=== PATIENT | female | born 1995 | race Caucasian/White ===

== ENCOUNTER 2016-07-26 18:04 | Emergency (ER) | payer BC, OTHER ==
[~2016-07-26] VITALS: Ht 162.6 cm; Wt 60.0 kg
[2016-07-26 18:09] VITALS: Ht 162.6 cm; Wt 60.0 kg
[2016-07-26] MEDS ORDERED: ONDANSETRON 8 MG/54 ML D5W IV STA (20:13)
[2016-07-26] MEDS ORDERED: MoRPHine SULFATE 4 MG/ML 1 ML CARP\\VIAL IV STA (20:14)
[2016-07-26] MEDS ORDERED: SODIUM CHLORIDE 0.9% 1000ML 2,000 ML IV STA (20:14)
[2016-07-26 20:28] LABS: HEMATOCRIT 39.2 % (37-47); MEAN CORPUSCULAR HEMOGLOBIN 28.2 pg (25-34); MEAN CORPUSCULAR HGB CONC 34.4 g/dl (32-36); MEAN PLATELET VOLUME 9.6 fL (7.4-10.4); PLATELET COUNT 210 K/uL (130-400); RED BLOOD COUNT 4.78 M/uL (4.2-5.4); WHITE BLOOD COUNT 9.52 K/uL (4.8-10.8)
[2016-07-26] MEDS ORDERED: EFF75 PO (20:33)
[2016-07-26] MEDS ORDERED: LORA-741 PO (20:34)
[2016-07-26] MEDS ORDERED: IUD'IUD PV (20:35)
[2016-07-26 20:36] LABS: PREG INTERNAL NEGATIVE QC NEG CLEAR BACKGROUND; PREG INTERNAL POSITIVE QC POS CONTROL LINE
[2016-07-26 20:38] LABS: BUN/CREATININE RATIO 22.6 (10-20); CALCIUM 9.1 mg/dl (8.5-10.1); CREATININE 1.1 mg/dl (0.60-1.20); POTASSIUM 3.2 mmol/L (3.5-5.1)
[2016-07-26 21:16] LABS: BASO % 0.1 %; BASO ABS # 0.01 K/uL (0-0.2); COMPLETE YES; IG% 0.3 %; LYMPH % 4.3 %; LYMPH ABS # 0.41 K/uL (1.2-3.4); MONO % 5.3 %
[2016-07-26] MEDS ORDERED: ACETAMINOPHEN 500 MG TAB PO STA (22:33)
[2016-07-26] MEDS ORDERED: KETOROLAC TROMETHAMINE 30 MG/ML VIAL IV STA (22:33)
[2016-07-26 23:37] VITALS: TEMP 37.8
[2016-07-26] MEDS ORDERED: SODIUM CHLORIDE 0.9% 1000ML 1,000 ML IV STA (23:58)
[2016-07-27] MEDS ORDERED: PHENERGAN 25MG HOMEPACK PO ONE (00:45)
[2016-07-27 01:00] VITALS: BP 104/57; PULSE 101; O2SAT 100
--- NOTE | 2016-07-27 03:12 | EMERGENCY ROOM VISIT NOTE ---
History Report prepared by Vinicioibbeka: Yadira Perez Under the Supervision of: Dr. Jim Delgadillo M.D. First contact with patient: 19:48 Chief Complaint: ABDOMINAL PAIN Stated Complaint: STOMACH PAIN,PINS AND NEEDLES,THROWING UP,DIARRHEA Nursing Triage Summary: Woke up at 3am not feeling well. Vomiting since 7 am. Pins and needles in hands. History of Present Illness The patient is a 21 year old female who presents to the Emergency Room with complaints of constant vomiting and abdominal pain beginning 13 hours ago. The patient states that she woke up this morning and felt a burning in her chest and stomach and thought that it may be indigestion until she threw up 2 hours later in the shower. She notes that she has been throwing up every hour for the last 10 hours and has had 3 episodes of diarrhea, tingling hands, soreness from vomiting, back pain, and infrequent urination. The patient reports that she has only had water and saltines today. The patient rates her pain while laying down as a 6/10 and when she is about to vomit an 8/10. She reports that vomiting makes her feel better for a little while but within the hour she feels the burning again. She notes that her father has Katie's and she has been getting blood work to check her thyroid that has been normal. She reports that none of her friends have been sick around her to this severity. Pt denies LOC, headache, fevers, chills, diaphoresis, visual changes, neck pain, chest pain, breathing difficulties, melena, hematochezia, numbness, weakness, lymphadenopathy, rash, or other complaints. Source of History: patient Onset: 13 hours ago Position: abdomen Quality: burning Timing: constant Modifying Factors (Worsening): other (vomiting) Review of Systems See HPI for pertinent positives and negatives. A total of ten systems were reviewed and were otherwise negative. Past Medical & Surgical Medical Problems: (1) No known problems (2) No known problems Family History No pertinent family history stated. Social History Smoking Status: Never Smoker Marital Status: single Housing Status: lives with roommate Occupation Status: [employer] student Current/Historical Medications Scheduled Iud's ([employer]), 1 PV CONTINOUS Venlafaxine Hcl (Effexor), 75 MG PO DAILY Scheduled PRN Lorazepam (Ativan), 0.5 MG PO BID PRN for Anxiety Allergies Coded Allergies: No Known Allergies (Unverified , 07/26/16) Physical Exam Vital Signs Date Time Temp Pulse Resp B/P Pulse Ox O2 Delivery O2 Flow Rate FiO2 07/27/16 01:00 101 16 104/57 100 07/27/16 00:33 108 07/26/16 23:37 37.8 07/26/16 22:30 116 18 106/42 99 Room Air 07/26/16 22:09 38.3 07/26/16 20:30 108 07/26/16 20:00 115 18 107/42 100 Room Air 07/26/16 18:09 37.3 138 18 112/70 100 Room Air Physical Exam GENERAL: Awake, alert, in no distress. HEAD: Normocephalic, atraumatic. No edema. EYES: Normal conjunctiva. Sclera non-icteric. OROPHARYNX: Lips, tongue, and mucosa unremarkable. No erythema or exudate. NECK: Supple. No nuchal rigidity. FROM. No adenopathy. RESPIRATORY: CTA bilaterally. No wheezes rales or rhonchi. CARDIAC: Borderline tachycardic rate, normal rhythm. ABDOMEN: Soft, non distended. minimal diffuse tenderness to palpation. No rebound or guarding. MUSCULOSKELETAL: Atraumatic. No edema. NEURO: Normal sensorium. SKIN: No rash or jaundice noted Medical Decision & Procedures Laboratory Results 07/26/16 20:15 Red Blood Count 4.78, Mean Corpuscular Volume 82.0, Mean Corpuscular Hemoglobin 28.2, Mean Corpuscular Hemoglobin Concent 34.4, Mean Platelet Volume 9.6, Neutrophils (%) (Auto) 90.0, Lymphocytes (%) (Auto) 4.3, Monocytes (%) (Auto) 5.3, Eosinophils (%) (Auto) 0.0, Basophils (%) (Auto) 0.1, Neutrophils # (Auto) 8.57, Lymphocytes # (Auto) 0.41, Monocytes # (Auto) 0.50, Eosinophils # (Auto) 0.00, Basophils # (Auto) 0.01 07/26/16 20:15 Test 07/26/16 20:15 White Blood Count 9.52 K/uL (4.8-10.8) Red Blood Count 4.78 M/uL (4.2-5.4) Hemoglobin 13.5 g/dL (12.0-16.0) Hematocrit 39.2 % (37-47) Mean Corpuscular Volume 82.0 fL (80-100) Mean Corpuscular Hemoglobin 28.2 pg (25-34) Mean Corpuscular Hemoglobin Concent 34.4 g/dl (32-36) Platelet Count 210 K/uL (130-400) Mean Platelet Volume 9.6 fL (7.4-10.4) Neutrophils (%) (Auto) 90.0 % Lymphocytes (%) (Auto) 4.3 % Monocytes (%) (Auto) 5.3 % Eosinophils (%) (Auto) 0.0 % Basophils (%) (Auto) 0.1 % Neutrophils # (Auto) 8.57 K/uL (1.4-6.5) Lymphocytes # (Auto) 0.41 K/uL (1.2-3.4) Monocytes # (Auto) 0.50 K/uL (0.11-0.59) Eosinophils # (Auto) 0.00 K/uL (0-0.5) Basophils # (Auto) 0.01 K/uL (0-0.2) RDW Standard Deviation 41.2 fL (36.4-46.3) RDW Coefficient of Variation 13.7 % (11.5-14.5) Immature Granulocyte % (Auto) 0.3 % Immature Granulocyte # (Auto) 0.03 K/uL (0.00-0.02) Anion Gap 17.0 mmol/L (3-11) Est Creatinine Clear Calc Drug Dose 70.5 ml/min Estimated GFR () 83.7 Estimated GFR (Non- 72.2 BUN/Creatinine Ratio 22.6 (10-20) Calcium Level 9.1 mg/dl (8.5-10.1) Total Bilirubin 1.3 mg/dl (0.2-1) Direct Bilirubin 0.3 mg/dl (0-0.2) Aspartate Amino Transf (AST/SGOT) 18 U/L (15-37) Alanine Aminotransferase (ALT/SGPT) 23 U/L (12-78) Alkaline Phosphatase 62 U/L (45-117) Total Protein 7.7 gm/dl (6.4-8.2) Albumin 4.2 gm/dl (3.4-5.0) Lipase 126 U/L (73-393) Human Chorionic Gonadotropin, Qual NEG (NEG) Laboratory results reviewed by me Medications Administered Medications (Trade) Dose Ordered Sig/[place] Route Start Time Stop Time Status Last Admin Dose Admin Ondansetron HCl 8 mg 8 mg NOW STAT IV 07/26/16 20:13 07/26/16 20:14 DC 07/26/16 20:20 8 MG Sodium Chloride (Nss 1000ml) 2,000 ml @ 999 mls/hr Q2H1M STAT IV 07/26/16 20:14 07/26/16 22:14 DC 07/26/16 20:21 999 MLS/HR Morphine Sulfate (MoRPHine SULFATE INJ) 4 mg NOW STAT IV 07/26/16 20:14 07/26/16 20:16 DC 07/26/16 20:21 4 MG Ketorolac Tromethamine (Toradol Inj) 10 mg NOW STAT IV 07/26/16 22:33 07/26/16 22:34 DC 07/26/16 22:39 10 MG Acetaminophen 1000 mg 1,000 mg NOW STAT PO 07/26/16 22:33 07/26/16 22:34 DC 07/26/16 22:39 1,000 MG Sodium Chloride (Nss 1000ml) 1,000 ml @ 999 mls/hr Q1H1M STAT IV 07/26/16 23:58 07/27/16 00:58 DC 07/26/16 23:58 999 MLS/HR Promethazine HCl (Phenergan 25MG Home Pack) 1 homepack UD ONCE PO 07/27/16 00:45 07/27/16 00:46 DC 07/27/16 00:45 1 HOMEPACK ED Course 1948: The patient was evaluated in room B9. A complete history and physical exam was performed. 2013: Zofran 8mg IV, Morphine Sulfate 4mg IV, Sodium Chloride 2000 ml @ 999 mls/ hr IV. 2116: I reevaluated the patient. She is feeling much better and is getting an oral challenge. 2206: I reevaluated the patient. She is feeling warm so we will recheck her temperature. Her stomach is feeling better. 2232: Tylenol Tab 1000mg PO, Toradol Inj 10mg IV. 6: I reevaluated the patient and she says that she is doing okay. She has a fever and she was given Tylenol. 2333: I reevaluated the patient and she was feeling better. We are going to give her more fluid. 2358: Sodium Chloride 1000 ml @ 999 mls/hr IV. 0023: I reevaluated the patient. She is feeling much better and would like to go home. 0045: Promethazine HCl 1 homepack PO. 0052: I reevaluated the patient. Discussed results and discharge instructions: She verbalized understanding and agreement. The patient is ready for discharge. Medical Decision Triage Nursing notes reviewed and agree them. The patient's history was concerning for nausea, vomiting, diarrhea, and abdominal pain. Differential diagnosis: Etiologies such as gastroenteritis, food borne illness, infections, appendicitis , diverticulitis, inflammatory bowel disease, GI bleed, biliary pathology, as well as others were entertained. Physical examination findings: As above. Borderline tachycardia. No peritoneal findings. Mild diffuse tenderness. ER treatment provided: IV hydration 2 L NSS. IV Zofran 8 mg IV morphine 4 mg On reassessment the patient felt significantly better. Patient was tolerating p.o. intake. The patient was found to have a fever. She was given Tylenol and IV Toradol. On reassessment she felt much better. Repeat abdominal examination was benign. She had some mild tachycardia and the patient was treated with an additional liter of IV fluid which helped. Diagnostics interpretation by me: The labs revealed an unremarkable CBC. Mild hypokalemia and dehydration on chemistry panel. Slight elevation of bilirubin functions but normal LFTs otherwise. test negative. Lipase negative. Urine ketones noted. No signs of infection on urine dip. Imaging studies: Deferred The patient presented with abdominal pain, vomiting or diarrhea. She had dehydration. Her chemistries were rather unremarkable with just a slight decrease in her potassium. Cbc was unremarkable. and LFTs were negative. I suspect a gastroenteritis-like presentation given incidents in the community at this time. Patient is significantly better and I discussed conservative management. She was in agreement. If she worsens in any way she will come back. I gave my usual and customary discussion regarding this issue. By the evaluation outlined above emergent etiologies such as appendicitis, diverticulitis, mesenteric ischemia, aortic pathology, inflammatory bowel disease, renal colic, PUD, biliary pathology, UTI, as well as others were deemed relatively unlikely. The patient was informed about the findings as listed above. All questions were answered and she was very pleased with the treatment. Return instructions were outlined and the patient was discharged in stable condition. Outpatient prescription management: Phenergan home pack Referral: The patient was referred to her primary care physician for follow-up in 2 to 3 days for a recheck of the current condition. The chart was completed utilizing [employer] voice recognition software. Grammatical errors, random word insertions, pronoun errors, and incomplete sentences are an occasional consequence of this system due to software limitations, ambient noise, and hardware issues. Any formal questions or concerns about the content, text, or information contained within the body of this dictation should be directly addressed to the physician for clarification. Impression Primary Impression: Nausea, vomiting and diarrhea Additional Impression: Generalized abdominal pain Scribe Attestation The scribe's documentation has been prepared under my direction and personally reviewed by me in its entirety. I confirm that the note above accurately reflects all work, treatment, procedures, and medical decision making performed by me. Departure Information Dispostion Home / Self-Care Forms HOME CARE DOCUMENTATION FORM, IMPORTANT VISIT INFORMATION Patient Instructions My [facility] Additional Instructions DO NOT drive, drink alcohol, operate machinery, or perform dangerous activities today. You were given medications in the ER that can affect your ability to safely function or operate a vehicle. Phenergan(promethazine) tablets 25mg: Take one every six hours as needed for nausea. Avoid alcohol, operating machinery or dangerous equipment, working on ladders or roofs, DRIVING, or situations where being under the influence may be dangerous. Ibuprofen(Motrin, Advil) may be used for fever or pain. Use 600mg every six hours as needed. Take with food. Avoid using more than 2400mg in a 24 hour period. Do not use 2400mg per day for more than three consecutive days without physician direction. Prolonged inappropriate use can lead to stomach upset or ulcers. (AND/OR) Acetaminophen(Tylenol) may be used for fever or pain. Use 1000mg every six hours as needed. Avoid using more than 4000mg in a 24 hour period. Rest and drink plenty of fluids as tolerated. Slow sips of water or sports drinks are recommended instead of large amounts all at once. Continue current medications. Once your stomach is settled start with a clear liquid diet (jello, soup broth, etc.) and then advance as tolerated. You should avoid full, heavy meals for about 24 hrs from the time your symptoms resolved. Return to the ER for persistent vomiting, fevers, abdominal pain, chest pains, difficulty breathing, black or bloody stools, worsening of your condition, or as needed. Follow up with your primary physician in 2-3 days for a recheck of your current condition Problem Qualifiers
== END 2016-07-27 01:01 | disposition home or self-care (01) ==
LOC: C.EDB 18:06
DX: R11.2 Nausea with vomiting, unspecified (principal); R19.7 Diarrhea, unspecified; R10.84 Generalized abdominal pain; Z79.899 Other long term (current) drug therapy